=== PATIENT | male | born 1990 | race Caucasian/White ===

== ENCOUNTER 2021-06-16 22:27 | Emergency (ER) | payer BC ==
--- NOTE | 2021-06-16 23:04 | EDM.PDOC ---
ED HPI GENERAL MEDICAL PROBLEM - General Chief Complaint: Laceration Stated Complaint: LACERATION ABOVE RT EYE Time Seen by Provider: 06/16/21 22:30 Source of Information: Reports: Patient History Limitations: Reports: No Limitations - History of Present Illness INITIAL COMMENTS - FREE TEXT/NARRATIVE: Patient is a 30-year-old male who presents today for laceration above his right eye. States he bumped his head causing laceration. He denies any vision changes pain anywhere else. Patient is unsure of his tetanus status and is not sure he wants to receive the tetanus vaccine today. - Related Data Allergies Allergy/AdvReac Type Severity Reaction Status Date / Time No Known Allergies Allergy Verified 06/16/21 23:08 Home Meds: Home Meds Escitalopram [Lexapro] 10 mg PO DAILY 06/16/21 [History] PARoxetine [Paxil] 20 mg PO DAILY 06/16/21 [History] ED ROS GENERAL - Review of Systems Review Of Systems: See Below Constitutional: Reports: No Symptoms HEENT: Reports: No Symptoms Respiratory: Reports: No Symptoms Cardiovascular: Reports: No Symptoms Endocrine: Reports: No Symptoms GI/Abdominal: Reports: No Symptoms : Reports: No Symptoms Musculoskeletal: Reports: No Symptoms Skin: Reports: Other (laceration) Neurological: Reports: No Symptoms Psychiatric: Reports: No Symptoms Hematologic/Lymphatic: Reports: No Symptoms Immunologic: Reports: No Symptoms ED EXAM, SKIN/RASH Exam: See Below Exam Limited By: No Limitations General Appearance: Alert, WD/WN, No Apparent Distress Eye Exam: Bilateral Eye: EOMI, PERRL Ears: Normal External Exam Nose: Normal Inspection Head: Other (Lac above right eyebrow) Neck: Normal Inspection Respiratory/Chest: No Respiratory Distress, Lungs Clear, Normal Breath Sounds Cardiovascular: Normal Peripheral Pulses Neurological: Alert, Oriented, Normal Cognition, Normal Gait ED SKIN PROCEDURES - Laceration/Wound Repair Face Appearance: Superficial Anesthetic Type: Local Local Anesthesia - Lidocaine (Xylocaine): 1% Plain Local Anesthetic Volume: 2cc Skin Prep: Saline Saline Irrigation (cc's): 1,000 Exploration/Debridement/Repair: Wound Explored, No Foreign Material Found Closed with: Sutures Lac/Wound length In cm: 4 Suture Size: 6-0 Suture Type: Running Course - Vital Signs Last Recorded V/S: Last Vital Signs Temp 96.8 F L 06/16/21 23:00 Pulse 102 H 10/13/21 23:00 Resp 18 06/16/21 23:00 BP 144/95 H 06/16/21 23:00 Pulse Ox 98 06/16/21 23:00 - Orders/Labs/Meds Meds: Medications Discontinued Medications Generic Name Dose Route Start Last Admin Trade Name Oliver PRN Reason Stop Dose Admin Lidocaine HCl 5 ml 06/16/21 23:01 06/16/21 23:16 Lidocaine 1% 5 Ml Sdv INJECT 06/16/21 23:02 5 ml ONETIME ONE Administration Departure - Departure Time of Disposition: 23:50 Disposition: Home, Self-Care 01 Condition: Good Clinical Impression: Laceration of eyebrow - Discharge Information *PRESCRIPTION DRUG MONITORING PROGRAM REVIEWED*: Not Applicable *COPY OF PRESCRIPTION DRUG MONITORING REPORT IN PATIENT BRENDA: Not Applicable Instructions: Laceration Care, Adult, Facial Laceration Referrals: Lalitha Willis [employer] [Primary Care Provider] - Forms: ED Department Discharge Additional Instructions: The following information is given to patients seen in the emergency department who are being discharged to home. This information is to outline your options for follow-up care. We provide all patients seen in our emergency department with a follow-up referral. The need for follow-up, as well as the timing and circumstances, are variable depending upon the specifics of your emergency department visit. If you don't have a primary care physician on staff, we will provide you with a referral. We always advise you to contact your personal physician following an emergency department visit to inform them of the circumstance of the visit and for follow-up with them and/or the need for any referrals to a consulting specialist. The emergency department will also refer you to a specialist when appropriate. This referral assures that you have the opportunity for follow-up care with a specialist. All of these measure are taken in an effort to provide you with optimal care, which includes your follow-up. Under all circumstances we always encourage you to contact your private physician who remains a resource for coordinating your care. When calling for follow-up care, please make the office aware that this follow-up is from your recent emergency room visit. If for any reason you are refused follow-up, please contact the [facility] Emergency Department at and asked to speak to the emergency department charge nurse. Please follow up with your primary care physician. If you do not have a primary care physician, see below: [facility] [address] [place] [address] My [facility] [address] [place] [address] You were seen today for a cut above your right eye. We cleaned it out and repaired it with sutures. You would need to have them removed in the next 7 to 10 days. You can have them removed by your primary care physician or you can return to the ED if you cannot get into see her primary physician. We have attached information on how to care for the sutures over the next few days. If you have any other concerning signs or symptoms please return to the ED. Sepsis Event Note (ED) - Focused Exam Vital Signs: Vital Signs Temp Pulse Resp BP Pulse Ox 06/16/21 23:00 96.8 F L 102 H 18 144/95 H 98 - Assessment/Plan Plan: Patient is a 30-year-old male presents today for laceration above his right eyebrow. Will irrigate clean and sutured eyebrow. Again patient is unsure if he wants the tetanus vaccination.
== END 2021-06-17 00:12 | disposition home or self-care (01) ==
LOC: MW.ED 22:27
DX: S01.111A Laceration without foreign body of right eyelid and periocular area, initial encounter (principal); W22.8XXA Striking against or struck by other objects, initial encounter
CPT/HCPCS: 12013; 99282-25